=== PATIENT | male | born 1980 | race African-American/Black ===

== ENCOUNTER 2019-04-11 09:50 | Day surgery (SDC) | payer BC ==
[~2019-04-11] VITALS: Ht 182.9 cm; Wt 163.3 kg
[~2019-04-11 09:50] MED LIST: ADIPEX-P37.5 M1; COMBIVIR 1501 COMBO PO; CRIXIVAN400 MG PO; NAPROSYN500 MG PO
[2019-04-11 11:31] VITALS: BP 125/69
== END 2019-04-11 11:45 | disposition home or self-care (01) | DRG 392 ==
LOC: ENDO 09:50 → ORM 11:15 → ENDO 11:45
PROVIDERS: ATTEND Internal Medicine Gastroenterology
PROC: 0DB48ZX Excision of Esophagogastric Junction, Via Natural or Artificial Opening Endoscopic, Diagnostic (ICD-10-PCS; principal; 2019-04-11)
PROC: 0DB78ZX Excision of Stomach, Pylorus, Via Natural or Artificial Opening Endoscopic, Diagnostic (ICD-10-PCS; 2019-04-11)
DX: K21.9 Gastro-esophageal reflux disease without esophagitis (principal); Z68.42 Body mass index [BMI] 45.0-49.9, adult; K29.50 Unspecified chronic gastritis without bleeding; K44.9 Diaphragmatic hernia without obstruction or gangrene; K25.9 Gastric ulcer, unspecified as acute or chronic, without hemorrhage or perforation; E66.01 Morbid (severe) obesity due to excess calories; Z98.890 Other specified postprocedural states